=== PATIENT | female | born 1990 | race Caucasian/White ===

== ENCOUNTER 2019-03-02 07:32 | Emergency (ER) | payer BC, OTHER | END 2019-03-02 09:17 | disposition home or self-care (01) | LOC: FTE 07:32 | DX: R19.7 Diarrhea, unspecified (principal) | CPT/HCPCS: 99282 ==

== ENCOUNTER 2019-06-09 08:55 | Inpatient (IN) | payer BC, OTHER ==
[2019-06-09] MEDS: ONDANSETRON 4 MG INJ IV ×2 (09:21→15:26)
[2019-06-09] MEDS: SOD CHLORIDE 0.9% 1,000 ML IV ×2 (09:21→12:18)
[2019-06-09 09:26] LABS: ADD MAN DIFF? NO
[2019-06-09 09:27] LABS: WHITE BLOOD COUNT 15.1 10^3/ul (4.8-10.8)
[2019-06-09 09:27] LABS: BASOPHILS % 0.2 % (0.0-2.0); EOSINOPHILS % 0.1 % (0.0-7.0); HEMATOCRIT 44.1 % (37.0-47.0); HEMOGLOBIN 14.8 g/dl (12.0-16.0); LYMPHOCYTES # 1.4 10^3/ul (0.8-2.9); MEAN CORPUSCULAR HEMOGLOBIN 29.7 pg (29.0-33.0); MEAN CORPUSCULAR HGB CONC 33.6 g/dl (32.0-37.0); MEAN CORPUSCULAR VOLUME 88.6 fl (82.0-101.0); MEAN PLATELET VOLUME 9.7 fl (7.4-10.4); MONOCYTE # 0.7 10^3/ul (0.3-0.9); MONOCYTES % 4.8 % (0.0-11.0); NEUTROPHIL # 12.9 10^3/ul (1.6-7.5); NEUTROPHILS % 85.4 % (39.0-77.0); PLATELET COUNT 278 10^3/UL (140-415); RED BLOOD COUNT 4.98 10^6/ul (4.20-5.40); RED CELL DISTRIBUTION WIDTH 12.4 % (11.5-14.5)
[2019-06-09] MEDS: morphine 4 MG/ML VIAL IV (09:29)
[2019-06-09 09:44] LABS: ALANINE AMINOTRANSFERASE 15 IU/L (13-69); ALBUMIN 4.8 g/dl (3.3-4.9); ALBUMIN/GLOBULIN RATIO 1.45; ALKALINE PHOSPHATASE 59 IU/L (42-121); ANION GAP 7 (5-13); ASPARTATE AMINO TRANSFERASE 19 IU/L (15-46); BILIRUBIN,INDIRECT 0.7 mg/dl (0-1.1); BILIRUBIN,TOTAL 0.7 mg/dl (0.2-1.3); BLOOD UREA NITROGEN 12 mg/dl (7-20); CALCIUM 9.9 mg/dl (8.4-10.2); CARBON DIOXIDE 30 mmol/L (21-31); CHLORIDE 101 mmol/L (97-110); CREATININE 0.58 mg/dl (0.44-1.00); Estimated GFR > 60 mL/min (>60); GLUCOSE 108 mg/dl (70-220); LIPASE 114 U/L (23-300); POTASSIUM 4.2 mmol/L (3.5-5.1); SODIUM 138 mmol/L (135-144); TOTAL PROTEIN 8.1 g/dl (6.1-8.1)
[2019-06-09 09:53] LABS: ADD UMIC YES; UR ASCORBIC ACID NEGATIVE (NEGATIVE); UR BACTERIA FEW /HPF (NONE SEEN); UR BILIRUBIN (Dip) NEGATIVE (NEGATIVE); UR BLOOD (Dip) 1+ mg/dL (NEGATIVE); UR BUDDING YEAST FEW /HPF (NONE SEEN); UR CLARITY CLEAR (CLEAR); UR COLOR YELLOW (YELLOW); UR GLUCOSE (Dip) NEGATIVE (NEGATIVE); UR KETONES (Dip) TRACE mg/dL (NEGATIVE); UR LEUKOCYTE ESTERASE (Dip) NEGATIVE Leu/ul (NEGATIVE); UR MUCUS FEW /HPF (NONE SEEN); UR NITRITE (Dip) NEGATIVE (NEGATIVE); UR RBC 11 /HPF (0-5); UR SQUAMOUS EPITHELIAL CELL FEW /HPF (FEW); UR TOTAL PROTEIN (Dip) NEGATIVE (NEGATIVE); UR UROBILINOGEN (Dip) NEGATIVE (NEGATIVE); UR WBC 1 /HPF (0-5)
[2019-06-09] MEDS: SOD CHLORIDE 0.9% 100 ML (10:31)
[2019-06-09] MEDS: IOHEXOL 300MG/ML 150 ML BTL (10:31)
[2019-06-09] MEDS: PIPER-TAZO 3.375 GM IV (PMX) 100 ML IVPB ×2 (10:47→12:00)
[2019-06-09] MEDS ORDERED: ACETAMINOPHEN 325 MG TAB PO ×2 (11:30→12:00)
[2019-06-09] MEDS ORDERED: ONDANSETRON 4 MG INJ IV ×3 (11:30→15:30)
[2019-06-09] MEDS ORDERED: NACL 0.9% 3 ML SYG IV (12:00)
[2019-06-09] MEDS ORDERED: HYDROCODONE/APAP (5/325) TAB PO (12:00)
[2019-06-09] MEDS ORDERED: morphine 2 MG INJ IV ×2 (12:00→15:30)
[2019-06-09] MEDS ORDERED: FENTAnyl 50 MCG/ML VIAL (14:28)
[2019-06-09] MEDS ORDERED: LIDOCAINE 2% (SDV) 5 ML INJ (14:38)
[2019-06-09] MEDS ORDERED: PROPOFOL 20 ML (14:38)
[2019-06-09] MEDS ORDERED: ROCURONIUM 50 MG INJ (14:38)
[2019-06-09] MEDS ORDERED: ONDANSETRON 4 MG INJ (14:39)
[2019-06-09] MEDS ORDERED: DEXAMETHASONE 4 MG/ML 5 ML INJ (14:39)
[2019-06-09] MEDS: BUPIVACAINE 0.5%/EPI (SDV) 30 ML INJ (14:49)
[2019-06-09] MEDS ORDERED: SODIUM CL BACTERIOSTATIC 30 ML INJ (14:49)
[2019-06-09] MEDS ORDERED: KETOROLAC 30 MG INJ (14:52)
[2019-06-09] MEDS ORDERED: SUGAMMADEX SODIUM 200 MG/2 ML VIAL IV (14:53)
[2019-06-09] MEDS ORDERED: LABETALOL HCL 20MG INJ IV (15:00)
[2019-06-09] MEDS ORDERED: FENTAnyl 50 MCG/ML VIAL IV ×3 (15:00)
[2019-06-09] MEDS ORDERED: EPHEDrine 25 MG/5 ML SYG IV (15:00)
[2019-06-09] MEDS ORDERED: MEPERIDINE 25 MG INJ IV (15:00)
[2019-06-09] MEDS ORDERED: METOCLOPRAMIDE 10 MG INJ IV (15:00)
[2019-06-09] MEDS ORDERED: MIDAZOLAM 1 MG/ML 2 ML INJ IV (15:00)
[2019-06-09] MEDS ORDERED: DIPHENHYDRAMINE 50 MG INJ IV (15:00)
[2019-06-09] MEDS ORDERED: ALBUTEROL 0.083% (NEB) 2.5 MG/3 ML AMP HHN (15:00)
[2019-06-09] MEDS ORDERED: hydrALAzine 20 MG INJ IV (15:00)
[2019-06-09] MEDS ORDERED: HYDROmorphONE 1 MG/5 ML IV SYRINGE IV ×2 (15:00)
[2019-06-09] MEDS: HYDROmorphONE 1 MG/5 ML IV SYRINGE IV (15:26)
[2019-06-09] MEDS: KETOROLAC 30 MG INJ IV (15:26)
[2019-06-09] MEDS ORDERED: OXYCODONE/ACETAMINOPHEN (5/325) TAB PO ×2 (15:30)
== END 2019-06-09 16:43 | disposition home or self-care (01) | DRG 343 ==
LOC: FTE 08:55 → REC 11:15
PROC: 0DTJ4ZZ Resection of Appendix, Percutaneous Endoscopic Approach (ICD-10-PCS; principal; 2019-06-09 14:00)
DX: K35.30 Acute appendicitis with localized peritonitis, without perforation or gangrene (principal); D72.829 Elevated white blood cell count, unspecified
CPT/HCPCS: 36415; 74177; 76830; 76856; 80053; 81001; 81025; 83690; 85025; 88304; 96361; 96365; 96375; 99285-25

== ENCOUNTER 2019-07-02 15:54 | Emergency (ER) | payer BC, OTHER ==
[2019-07-02] MEDS: SOD CHLORIDE 0.9% 1,000 ML IV (16:53)
[2019-07-02 17:10] LABS: ADD MAN DIFF? NO; BASOPHILS % 0.2 % (0.0-2.0); EOSINOPHILS # 0.1 10^3/ul (0.0-0.5); HEMATOCRIT 40.5 % (37.0-47.0); HEMOGLOBIN 13.8 g/dl (12.0-16.0); LYMPHOCYTES # 2.8 10^3/ul (0.8-2.9); LYMPHOCYTES % 25.9 % (15.0-51.0); MEAN CORPUSCULAR HEMOGLOBIN 30.3 pg (29.0-33.0); MEAN CORPUSCULAR HGB CONC 34.1 g/dl (32.0-37.0); MEAN CORPUSCULAR VOLUME 88.8 fl (82.0-101.0); MEAN PLATELET VOLUME 10.1 fl (7.4-10.4); MONOCYTE # 0.6 10^3/ul (0.3-0.9); MONOCYTES % 5.5 % (0.0-11.0); NEUTROPHIL # 7.1 10^3/ul (1.6-7.5); NEUTROPHILS % 67.1 % (39.0-77.0); PLATELET COUNT 235 10^3/UL (140-415); RED BLOOD COUNT 4.56 10^6/ul (4.20-5.40); RED CELL DISTRIBUTION WIDTH 12.5 % (11.5-14.5)
[2019-07-02 17:10] LABS: WHITE BLOOD COUNT 10.6 10^3/ul (4.8-10.8)
[2019-07-02] MEDS: BARIUM SULF 2% 450 ML BTL (BERRY SMOOTHIE) PO (17:16)
[2019-07-02 17:22] LABS: ADD UMIC YES; UR ASCORBIC ACID NEGATIVE (NEGATIVE); UR BACTERIA FEW /HPF (NONE SEEN); UR BILIRUBIN (Dip) NEGATIVE (NEGATIVE); UR BLOOD (Dip) 1+ mg/dL (NEGATIVE); UR CLARITY CLOUDY (CLEAR); UR COLOR YELLOW (YELLOW); UR GLUCOSE (Dip) NEGATIVE (NEGATIVE); UR KETONES (Dip) NEGATIVE (NEGATIVE); UR LEUKOCYTE ESTERASE (Dip) TRACE Leu/ul (NEGATIVE); UR MUCUS FEW /HPF (NONE SEEN); UR NITRITE (Dip) NEGATIVE (NEGATIVE); UR RBC 7 /HPF (0-5); UR SPECIFIC GRAVITY (Dip) 1.025 (1.003-1.030); UR SQUAMOUS EPITHELIAL CELL MODERATE /HPF (FEW); UR TOTAL PROTEIN (Dip) NEGATIVE (NEGATIVE); UR UROBILINOGEN (Dip) NEGATIVE (NEGATIVE); UR WBC 3 /HPF (0-5)
[2019-07-02 17:30] LABS: ALANINE AMINOTRANSFERASE 26 IU/L (13-69); ALBUMIN 4.4 g/dl (3.3-4.9); ALBUMIN/GLOBULIN RATIO 1.33; ALKALINE PHOSPHATASE 48 IU/L (42-121); ANION GAP 9 (5-13); ASPARTATE AMINO TRANSFERASE 18 IU/L (15-46); BILIRUBIN,INDIRECT 0.3 mg/dl (0-1.1); BILIRUBIN,TOTAL 0.3 mg/dl (0.2-1.3); BLOOD UREA NITROGEN 11 mg/dl (7-20); CALCIUM 9.4 mg/dl (8.4-10.2); CARBON DIOXIDE 25 mmol/L (21-31); CHLORIDE 103 mmol/L (97-110); CREATININE 0.59 mg/dl (0.44-1.00); Estimated GFR > 60 mL/min (>60); GLUCOSE 83 mg/dl (70-220); LIPASE 144 U/L (23-300); POTASSIUM 3.6 mmol/L (3.5-5.1); SODIUM 137 mmol/L (135-144); TOTAL PROTEIN 7.7 g/dl (6.1-8.1)
[2019-07-02] MEDS: SOD CHLORIDE 0.9% 100 ML (19:42)
[2019-07-02] MEDS: IOHEXOL 300MG/ML 150 ML BTL (19:42)
== END 2019-07-02 20:22 | disposition home or self-care (01) ==
LOC: FTE 15:54
DX: R10.31 Right lower quadrant pain (principal)
CPT/HCPCS: 36415; 74177; 80053; 81001; 81025; 83690; 84702; 85025; 96360; 99285-25